=== PATIENT | male | born 1980 | race Caucasian/White ===

== ENCOUNTER 2016-05-21 08:30 | Emergency (ER) | payer OTHER ==
[~2016-05-21] VITALS: Ht 185.4 cm; Wt 90.9 kg
[2016-05-21 08:32] VITALS: BP 138/88; PULSE 80; RESP 16; O2SAT 96
--- NOTE | 2016-05-21 08:43 | ED.REPORT ---
HPI-Extremity Problem Lower Date of Service May 21, 2016 ED Provider: Leonel Novoa Patient is a 36 year old male who presents to the ED complaining of left knee pain onset yesterday. He may have injured his knee during his grappling class last night. Associated symptoms include L knee swelling. He denies numbness, weakness, tingling, or any other symptoms. He has tried to use ice and heat to manage his pain. He had a L knee meniscus injury last year. Nursing Notes Stated Complaint: LEFT KNEE INJURY Chief Complaint: Extremity Trauma Nursing Notes Reviewed: Yes Allergies: Coded Allergies: ibuprofen (Verified Adverse Reaction, Unknown, rash, 05/21/16) General Time Seen by MD: 08:42 Chief Complaint Knee injury left Hx Obtained From: Patient Arrived By: Walk-in Onset Occurred: Yesterday Similar Sx Previous: Yes Past Medical History Past Medical History Healthy Past Surgical History Unknown Smoking History Current Every Day Smoker Social History Other Social History: Lives with children Ambulatory Status Independent Review of Systems Musculoskeletal: Reports: Joint pain (L knee), Joint swelling (L knee) Neurologic: Denies: Numbness, Weakness Complete sys rev & neg: except as marked. Physical Exam Initial Vital Signs Vital Signs (First) Date Time Temp Pulse Resp B/P Pulse Ox O2 Delivery O2 Flow Rate FiO2 05/21/16 08:32 36.4 80 16 138/88 96 General/Constitutional: Well-developed, Well-nourished Head / Eyes: Atraumatic, Normocephalic Neck: Full range of motion Respiratory: No respiratory distress Skin: Warm, Dry Neurologic: Alert, Oriented, Nonfocal Psychiatric: Mood/affect normal, Behavior normal, Normal thought content Left Knee: Positive: Swelling present... (Mild), Tenderness present... No warmth in the L knee. No laxity Ankle / Foot: Atraumatic, Inspection NL, Neurologic intact, Vascular intact Re-Eval/Medical Decision Re-Evaluation/Progress : Time of Eval: 08:49 Re-Evaluation/Progress Note: Discussed plan for discharge. Patient understands and agrees with plan. All questions addressed at this time. Counseled Regarding: Diagnosis, Need for follow-up, When/why to return to ED Discharge & Departure Impression: Primary Impression: Internal derangement of left knee Additional Impression: Left knee pain Chronicity: acute Qualified Code: M25.562 - Pain in left knee Disposition: Home Patient Instructions: Knee Sprain (ED) Additional Instructions: I think that your knee injury is most likely a medial meniscus injury. It would take an MRI however to prove this. There is no harm in walking on it. You may take 1000 mg of Tylenol every 6 hours for your pain. Ice the area for up to 30 minutes at a time. You may use crutches as needed. Your injury should improve over the next few days. Call your orthopedist tomorrow and make an appointment for 7-10 days from now. Return to the emergency department if you experience any numbness, weakness, or new or worsening symptoms. Referrals: Wojciech Garber MD (PCP) Michael Clark Attestation Portions of this note were transcribed by Mateus Castillo. I, Dr. Novoa personally performed the history, physical exam and medical decision-making; I reviewed and confirmed the accuracy of the information in the transcribed note. Signed by: Mateus Castillo 05/21/16, 0914 copies to: Wojciech Garber MD, Kirk H MD May 21, 2016 08:43 MATEUS CASTILLO May 21, 2016 08:50
== END 2016-05-21 09:27 | disposition home or self-care (01) ==
LOC: SED 08:30
DX: M23.92 Unspecified internal derangement of left knee (principal); M25.562 Pain in left knee; F17.200 Nicotine dependence, unspecified, uncomplicated; Z88.8 Allergy status to other drugs, medicaments and biological substances